=== PATIENT | female | born 1965 | race Caucasian/White ===

== ENCOUNTER 2024-03-12 06:04 | Outpatient (CLI) | payer MEDICAID ==
[2024-03-12] MEDS ORDERED: LIDOcaine 1%/PF 5ML 10 MG/ML VIAL ONE (06:36)
[2024-03-12] MEDS ORDERED: LIDOcaine 1% 30ml preserv. free vial ONE (06:36)
[2024-03-12] MEDS ORDERED: iohexol 300 MG/1 ML 50ml polymer ONE (06:36)
[2024-03-12] MEDS ORDERED: GADOTERATE MEGLUMINE 7.5 MMOL/15 ML VIAL IV ONE (06:37)
== END 2024-03-12 23:59 | disposition home or self-care (01) ==
LOC: RAD 06:04
PROVIDERS: ATTEND Orthopaedic Surgery
DX: M25.511 Pain in right shoulder (principal); M75.111 Incomplete rotator cuff tear or rupture of right shoulder, not specified as traumatic
CPT/HCPCS: 23350; 73222; 77002; A9575; J2003; J3490; Q9967